=== PATIENT | female | born 1980 | race Hispanic/Latino ===

== ENCOUNTER → 2017-08-22 | Outpatient (CLI) | payer OTHER ==
--- NOTE | 2017-08-24 11:30 | Diagnostic Imaging Report ---
History: Low back pain Comparison studies: None Technique: Sagittal, coronal and axial T2 , sagittal T1 and IR, axial spin density oblique. Intravenous contrast: None Findings: Number of lumbar vertebral bodies:5 Alignment: Normal lordosis.No scoliosis. Soft tissues: No T2 hyperintense inflammatory changes. Paraspinal muscles: No signal abnormalities. No atrophy. Lower thoracic cord:Normal in signal and morphology. The tip of the conus is at T12-L1. Cauda equina: No masses. No arachnoiditis. Vertebrae: Normal in height and signal intensity. No compression fractures, infection or neoplasm. Degenerative changes: Partially visualized disc degeneration with diffuse disc bulges at T9-T10 and T10-11 with patent canal and foramina. L1-L2: No abnormalities. L2-L3: No abnormalities. L3-L4: Mild disc degeneration with loss of T2 signal. Mild diffuse disc bulge with superimposed small central disc protrusion and mild bilateral facet hypertrophy results in mild canal stenosis and mild left foraminal narrowing. L4-L5: Disc degeneration with loss of T2 signal. Diffuse disc bulge with superimposed small central annular fissure and mild bilateral facet hypertrophy results in mild canal stenosis and mild bilateral foraminal narrowing. Trace of fluid at the right facet joint. L5-S1: Disc degeneration with loss of T2 signal and decreased intervertebral space and mild Modic type I changes. Mild diffuse disc bulge and mild bilateral facet hypertrophy without significant canal stenosis and mild bilateral foraminal narrowing. Trace of fluid at the right facet. Additional findings: None IMPRESSION: Disc degeneration and mild facet hypertrophy from L3 through S1 results in mild multilevel canal stenosis and foraminal narrowing as detailed above. Disc degeneration at the lower lumbar spine with Modic type I changes at L5-S1. Mild facet hypertrophy the lower lumbar spine with synovitis changes at L4-L5 and L5-S1 on the right. Signed by: DR Adrian Dunn M.D. on 08/24/2017 11:27 AM
== END ==
LOC: MRI 09:43
PROVIDERS: ATTEND Anesthesiology Pain Medicine
DX: M54.5 Low back pain (principal); M51.36 Other intervertebral disc degeneration, lumbar region
CPT/HCPCS: 72148